=== PATIENT | female | born 1980 | race African-American/Black ===

== ENCOUNTER 2024-01-10 20:48 | Emergency (ER) | payer BC ==
[~2024-01-10] VITALS: Ht 172.7 cm; Wt 110.0 kg
[2024-01-10 21:01] VITALS: BP 158/95; PULSE 91; RESP 22; TEMP 97.8; O2SAT 99
[2024-01-10] MEDS ORDERED: ACETAMINOPHEN 325MG TABLET PO ONE (21:45)
[2024-01-10] MEDS ORDERED: IBUP-2029 MT (22:31)
[2024-01-10] MEDS ORDERED: ACETAMINOPHEN 325MG TABLET PO NR (23:45)
== END 2024-01-10 23:49 | disposition home or self-care (01) ==
LOC: ER 20:48
DX: S40.012A Contusion of left shoulder, initial encounter (principal); V49.49XA Driver injured in collision with other motor vehicles in traffic accident, initial encounter; Y93.89 Activity, other specified; Y92.89 Other specified places as the place of occurrence of the external cause; Y99.8 Other external cause status
CPT/HCPCS: 73030; 99283